=== PATIENT | female | born 1980 | race Two or more races ===

== ENCOUNTER 2018-01-30 09:15 | Emergency (ER) | payer OTHER ==
[~2018-01-30] VITALS: Ht 167.6 cm; Wt 87.7 kg
[2018-01-30 09:21] VITALS: Ht 167.6 cm; Wt 87.7 kg
[2018-01-30 10:35] VITALS: BP 112/78
== END 2018-01-30 10:35 | disposition home or self-care (01) ==
LOC: ED 09:15
DX: S16.1XXA Strain of muscle, fascia and tendon at neck level, initial encounter (principal); M54.5 Low back pain; V43.52XA Car driver injured in collision with other type car in traffic accident, initial encounter; Y93.I9 Activity, other involving external motion; Y92.89 Other specified places as the place of occurrence of the external cause; Y99.8 Other external cause status